=== PATIENT | female | born 1950 | race Caucasian/White ===

== ENCOUNTER 2021-08-22 10:55 | Emergency (ER) | payer MEDICARE, OTHER ==
[2021-08-22] MEDS: Nirmatrelvir/Ritonavir 150 MG/100 MG Dose Pack PO SCH (12:29)
== END 2021-08-22 12:25 | disposition home or self-care (01) ==
LOC: KA.ED 10:55
DX: U07.1 COVID-19 (principal); Z79.899 Other long term (current) drug therapy
CPT/HCPCS: 87081; 87430; 99283; A9270-GY; U0002

== ENCOUNTER 2021-08-30 18:05 | Emergency (ER) | payer MEDICARE, OTHER ==
[2021-08-30] MEDS ORDERED: Sodium Chloride 0.9% 10 ML Syringe FLUSH PRN (18:50)
[2021-08-30] MEDS ORDERED: Sodium Chloride 0.9% 1,000 ML IV ONE (18:52)
== END 2021-08-30 20:41 | disposition home or self-care (01) ==
LOC: KA.ED 18:05
DX: R63.0 Anorexia (principal); I10 Essential (primary) hypertension; E11.9 Type 2 diabetes mellitus without complications; Z88.8 Allergy status to other drugs, medicaments and biological substances; Z79.899 Other long term (current) drug therapy
CPT/HCPCS: 96360; 99283-25; 99284; J7030